=== PATIENT | male | born 1965 | race Caucasian/White ===

== ENCOUNTER 2021-01-08 05:40 | Emergency (ER) | payer SELFPAY ==
[2021-01-08 06:22] LABS: #Basophils 0.1 thou/uL (0.0-0.2); #Lymphocytes 0.8 thou/uL (1.20-3.40); #Monocytes 0.8 thou/uL (0.11-0.59); #Neutrophils 10.4 thou/uL (1.40-6.50); %Basophils 0.6 % (0.0-1.0); %Eosinophils 0.2 % (0.0-10.0); %Lymphocytes 6.3 % (21.0-51.0); %Monocytes 6.4 % (0.0-10.0); %Neutrophils 86.5 % (42.0-75.0); Hemoglobin 14.5 g/dL (14.0-18.0); Mean Corpuscular HGB CONC 31.8 g/dL (32.0-36.0); Mean Corpuscular Hemoglobin 26.1 pg (27.0-31.0); Mean Corpuscular Volume 81.9 fL (78.0-98.0); Mean Platelet Volume 6.6 fL (7.4-10.4); Platelet Count 230 thou/uL (130-400); RBC Distribution Width 11.8 % (11.5-14.5); Red Blood Cell (RBC) Count 5.55 mill/uL (4.70-6.10)
[2021-01-08 06:28] LABS: Base Excess-Venous 1.7 mmol/L (-2.0 to 3.0); Bicarbonate (HCO3v) 26.9 mmol/L (22.0-28.0); CO2 Tension (PvCO2) 43.3 mmHg (42.0-51.0); Chloride 100 mmol/L (98-107); Hemoglobin - Calc 14.8 g/dL (14.0-18.0); Potassium 4.3 mmol/L (3.5-5.1); Sodium 137 mmol/L (138-145); T. Carbon Dioxide 28.2 mmol/L (22.0-28.0); vO2 Saturation-calc 99.1 % (60.0-85.0)
[2021-01-08 06:32] LABS: ALT (SGPT) 18 U/L (8-55); AST (SGOT) 20 U/L (5-34); Albumin 2.9 g/dL (3.5-5.0); Alkaline Phosphatase 94 U/L (40-110); Anion Gap 12 mmol/L (10-20); BUN (Urea Nitrogen) 15 mg/dL (8.4-25.7); Bilirubin, Total 0.5 mg/dL (0.2-1.2); CK (CPK) 69 U/L (30-200); Calc. Creatinine Clearance 0 mL/min (70-130); Calcium 8.3 mg/dL (7.8-10.44); Carbon Dioxide 26 mmol/L (22-29); Chloride 102 mmol/L (98-107); Globulin 3.4 g/dL (2.4-3.5); Magnesium 1.5 mg/dL (1.6-2.6); Potassium 4.4 mmol/L (3.5-5.1); Protein, Total 6.3 g/dL (6.0-8.3); Sodium 136 mmol/L (136-145)
[2021-01-08] MEDS ORDERED: Morphine 4 MG/ML VIAL ONE (06:34)
[2021-01-08] MEDS ORDERED: Fentanyl 100 MCG/2 ML VIAL ONE (06:36)
[2021-01-08 06:40] LABS: Glucose 225 mg/dL (70-105)
[2021-01-08] MEDS ORDERED: Sodium Chloride 0.9% 250 ML 250 ML ONE (06:41)
[2021-01-08] MEDS ORDERED: cefTRIAXone\\ROCEPHIN 1 GM VIAL ONE (06:41)
[2021-01-08] MEDS ORDERED: Sodium Chloride 0.9% 100 ML ONE (06:41)
[2021-01-08] MEDS ORDERED: Azithromycin 500 MG VIAL ONE (06:41)
== END 2021-01-08 07:08 | disposition short-term general hospital (02) ==
LOC: MADERS 05:40
DX: U07.1 COVID-19 (principal); J96.00 Acute respiratory failure, unspecified whether with hypoxia or hypercapnia; E11.9 Type 2 diabetes mellitus without complications; D72.829 Elevated white blood cell count, unspecified
CPT/HCPCS: 36415; 71045; 80053; 82330; 82550; 82803; 83605; 83735; 83880; 84484; 85025; 85379; 87040; 93005; 96374; 96375; J0456; J0696; J2270; J3010; J3490; J7050; J7620